=== PATIENT | female | born 1965 | race African-American/Black ===

== ENCOUNTER 2022-09-27 18:57 | Emergency (ER) | payer OTHER ==
[~2022-09-27] VITALS: Ht 165.1 cm; Wt 89.0 kg
[2022-09-27] MEDS ORDERED: NITROGLYCERIN 0.4MG TABLET SL SL PRN (19:30)
[2022-09-27] MEDS ORDERED: METOCLOPRAMIDE HCL 10MG/2ML VIAL IV ONE (19:30)
[2022-09-27] MEDS ORDERED: MORPHINE SULFATE 4 MG/ML CPJ (NOT FOR IM USE) IV ONE ×2 (19:30→22:45)
[2022-09-27 20:11] LABS: EOSINOPHILS % 1.6 % (0.0-5.0); HEMATOCRIT. 36.1 % (36.0-48.0); HEMOGLOBIN. 12.4 g/dL (12.0-16.0); LYMPHOCYTES % 28.8 % (20.0-50.0); MEAN CORPUSCULAR HEMOGLOBIN 30.5 pg (28.0-32.0); MEAN PLATELET VOLUME 7.2 fl (7.4-10.4); MONOCYTES % 10.2 % (2.0-8.0); NEUTROPHILS % 58.4 % (40.0-76.0); PLATELET 346 x1000/uL (130-400); RED BLOOD CELL COUNT 4.06 mill/uL (4.2-5.4); RED CELL DISTRIBUTION WIDTH 13.4 % (11.6-14.6)
[2022-09-27 20:14] LABS: CHLORIDE 107 mEq/L (98-107)
[2022-09-27 23:52] VITALS: BP 132/69
== END 2022-09-28 | disposition short-term general hospital (02) ==
LOC: ER 18:57
DX: R07.89 Other chest pain (principal); I10 Essential (primary) hypertension; Z88.0 Allergy status to penicillin
CPT/HCPCS: 36415; 71045; 80053; 83690; 83880; 84484; 85025; 93005; 96374; 96375; 96376; 99291; J2270; J2765